=== PATIENT | female | born 1995 | race Hispanic/Latino ===

== ENCOUNTER 2020-05-29 03:28 | Emergency (ER) | payer OTHER, SELFPAY ==
[2020-05-29] MEDS ORDERED: Ibuprofen 800 MG TAB ONE (03:52)
[2020-05-29] MEDS ORDERED: Boostrix 0.5 ML (Tdap) VIAL ONE (04:33)
== END 2020-05-29 05:00 | disposition home or self-care (01) ==
LOC: MADERS 03:28
DX: S20.214A Contusion of middle front wall of thorax, initial encounter (principal); S01.81XA Laceration without foreign body of other part of head, initial encounter; S40.021A Contusion of right upper arm, initial encounter; Y04.0XXA Assault by unarmed brawl or fight, initial encounter
CPT/HCPCS: 12011; 70486; 71046; 90471; 90715